=== PATIENT | male | born 1930 | race Caucasian/White ===

== ENCOUNTER 2016-12-15 15:30 | Inpatient (IN) | payer MEDICARE, BC ==
[~2016-12-15] VITALS: Ht 172.7 cm; Wt 114.0 kg
[~2016-12-15 15:30] MED LIST: ASPIRIN ADULT L81 MG PO; CIPROFLOXACIN250 MG PO; CLOPIDOGREL75 MG PO; GLIPIZIDE5 M1 PO; GLIPIZIDE5 MG PO; GLYCOLAX3350 N1 PO; KEFLEX500 M1 PO; LORTAB 5/3255 MG PO; MAG-AL PLU1 PO; MECLIZINE HCL25 MG PO; MEGESTROL AC20 MG PO; METFORMIN500 M1 PO; METFORMIN500 MG PO; PRAVASTATIN20 MG PO; PRAVASTATIN80 MG OR; TAMSULOSIN HCL0.4 MG PO; TYLENOL 500MG TAB PO; VENOFER20 MG/ML IV; [UNRECOGNIZED DRUG - OTHER] PO; [UNRECOGNIZED DRUG - OTHER] PO
[2016-12-15] MEDS ORDERED: NORTHERA100 MG PO (16:14)
[2016-12-15 16:40] LABS: HEMATOCRIT 29.6 % (39.0-50.0); HEMOGLOBIN 10.1 g/dl (14.0-18.0); IMMATURE GRANULOCYTES 0.8 % (0.0-1.0); MEAN CELL VOLUME 94.9 fL CALC (80.0-100.0); MEAN CORPUSCULAR HGB 32.4 pG CALC (26.0-32.0); MEAN CORPUSCULAR HGB CONC 34.1 g/L CALC (32.0-36.0); NEUT# 7.61 thou/uL (1.82-7.42); RED BLOOD COUNT 3.12 mill/uL (4.70-6.10); RED CELL DISTRI WIDTH 12.9 % (11.5-15.5)
[2016-12-15 16:49] LABS: ALBUMIN 3.9 g/dL (3.2-5.0); ALKALINE PHOSPHATASE 66 u/l (38-126); AMYLASE 63 u/l (30-110); ANION GAP 15 (6-22 (CALC)); BILIRUBIN, TOTAL 0.5 mg/dL (0.0-1.4); BUN 25 mg/dL (8-23); BUN/CREATININE RATIO 21 (12-20 (CALC)); CALCIUM 9.4 mg/dL (8.4-10.2); CARBON DIOXIDE 25 mmol/l (22-30); CHLORIDE 96 mmol/l (95-108); CREATININE 1.2 mg/dL (0.7-1.3); GFR 57 ML/MIN (>=60 (CALC)); GFR FOR AFR.AMER. > 60 ML/MIN (>=60 (CALC)); GLUCOSE 209 mg/dL (82-115); LIPASE 108 u/l (23-300); POTASSIUM 4.6 mmol/l (3.5-5.1); SGOT/AST 21 u/l (19-48); SGPT/ALT 31 u/l (11-66); SODIUM 131 mmol/l (137-146); TOTAL PROTEIN 6.7 g/dL (6.3-8.2)
[2016-12-15 16:52] LABS: PROTHROMBIN TIME 10.5 SECONDS (9.0-12.5)
[2016-12-15 17:00] LABS: MYOGLOBIN 65 ng/mL (0 - 121)
[2016-12-15 17:26] LABS: URINE BILIRUBIN - DIPSTICK NEGATIVE (NEGATIVE); URINE BLOOD DIPSTICK NEGATIVE (NEGATIVE); URINE CLARITY CLEAR; URINE COLOR YELLOW; URINE GLUCOSE - DIPSTICK >=1000 mg/dL (NEGATIVE); URINE KETONE NEGATIVE (NEGATIVE); URINE LEUK ESTERASE NEGATIVE (NEGATIVE); URINE NITRITE - DIPSTICK NEGATIVE (Negative); URINE PH 6.5 (4.5-8.0); URINE PROTEIN - DIPSTICK NEGATIVE (NEG-TRACE); URINE SPECIFIC GRAVITY 1.015; URINE UROBILINOGEN - DIPSTICK 0.2 E.U./dL (0.2)
[2016-12-15 19:00] VITALS: BP 156/69
[2016-12-15 21:00] VITALS: BP 138/69
[2016-12-15 21:02] VITALS: BP 141/78
[2016-12-15 21:04] VITALS: BP 62/43; BP 92/43
[2016-12-16] VITALS (12 sets, daily range): BP systolic 63–160; BP diastolic 37–74
[2016-12-16 06:07] LABS: HEMATOCRIT 28.8 % (39.0-50.0); HEMOGLOBIN 9.7 g/dl (14.0-18.0); IMMATURE GRANULOCYTES 0.9 % (0.0-1.0); MEAN CORPUSCULAR HGB CONC 33.7 g/L CALC (32.0-36.0); NEUT# 5.9 thou/uL (1.82-7.42); RED BLOOD COUNT 3.03 mill/uL (4.70-6.10)
[2016-12-16 06:26] LABS: ALBUMIN 3.4 g/dL (3.2-5.0); ALKALINE PHOSPHATASE 65 u/l (38-126); ANION GAP 13 (6-22 (CALC)); BILIRUBIN, TOTAL 0.7 mg/dL (0.0-1.4); BUN 22 mg/dL (8-23); BUN/CREATININE RATIO 20 (12-20 (CALC)); CALCIUM 9.2 mg/dL (8.4-10.2); CARBON DIOXIDE 26 mmol/l (22-30); CHLORIDE 98 mmol/l (95-108); CREATININE 1.1 mg/dL (0.7-1.3); GFR > 60 ML/MIN (>=60 (CALC)); GFR FOR AFR.AMER. > 60 ML/MIN (>=60 (CALC)); GLUCOSE 167 mg/dL (82-115); POTASSIUM 4.7 mmol/l (3.5-5.1); SGOT/AST 16 u/l (19-48); SGPT/ALT 29 u/l (11-66); SODIUM 132 mmol/l (137-146)
[2016-12-17 05:08] VITALS: BP 135/42
[2016-12-17 06:27] LABS: HEMATOCRIT 28.7 % (39.0-50.0); HEMOGLOBIN 9.6 g/dl (14.0-18.0); IMMATURE GRANULOCYTES 0.8 % (0.0-1.0); MEAN CELL VOLUME 95.3 fL CALC (80.0-100.0); MEAN CORPUSCULAR HGB 31.9 pG CALC (26.0-32.0); MEAN CORPUSCULAR HGB CONC 33.4 g/L CALC (32.0-36.0); NEUT# 4.91 thou/uL (1.82-7.42); RED BLOOD COUNT 3.01 mill/uL (4.70-6.10); RED CELL DISTRI WIDTH 13.1 % (11.5-15.5)
[2016-12-17 07:18] LABS: ANION GAP 13 (6-22 (CALC)); BUN 23 mg/dL (8-23); BUN/CREATININE RATIO 19 (12-20 (CALC)); CALCIUM 8.9 mg/dL (8.4-10.2); CARBON DIOXIDE 25 mmol/l (22-30); CHLORIDE 98 mmol/l (95-108); CREATININE 1.2 mg/dL (0.7-1.3); GFR 57 ML/MIN (>=60 (CALC)); GFR FOR AFR.AMER. > 60 ML/MIN (>=60 (CALC)); GLUCOSE 156 mg/dL (82-115); MAGNESIUM 2.1 mg/dL (1.6-2.3); POTASSIUM 4.4 mmol/l (3.5-5.1); SODIUM 131 mmol/l (137-146)
[2016-12-17 07:22] VITALS: BP 152/53
[2016-12-17 11:38] VITALS: BP 86/48
[2016-12-17 16:14] VITALS: BP 145/70
[2016-12-17 19:20] VITALS: BP 161/66
[2016-12-17 19:25] VITALS: BP 138/58
[2016-12-18] VITALS (9 sets, daily range): BP systolic 92–165; BP diastolic 52–76
[2016-12-18 06:47] LABS: ANION GAP 13 (6-22 (CALC)); BUN 19 mg/dL (8-23); BUN/CREATININE RATIO 16 (12-20 (CALC)); CARBON DIOXIDE 24 mmol/l (22-30); CHLORIDE 99 mmol/l (95-108); CREATININE 1.1 mg/dL (0.7-1.3); GFR > 60 ML/MIN (>=60 (CALC)); GFR FOR AFR.AMER. > 60 ML/MIN (>=60 (CALC)); GLUCOSE 162 mg/dL (82-115); POTASSIUM 4.5 mmol/l (3.5-5.1); SODIUM 132 mmol/l (137-146)
[2016-12-19 04:45] VITALS: BP 140/57
[2016-12-19 06:04] LABS: HEMATOCRIT 30.6 % (39.0-50.0); HEMOGLOBIN 10.5 g/dl (14.0-18.0); MEAN CELL VOLUME 94.7 fL CALC (80.0-100.0); MEAN CORPUSCULAR HGB 32.5 pG CALC (26.0-32.0); MEAN CORPUSCULAR HGB CONC 34.3 g/L CALC (32.0-36.0); NEUT# 6.42 thou/uL (1.82-7.42); RED BLOOD COUNT 3.23 mill/uL (4.70-6.10); RED CELL DISTRI WIDTH 12.8 % (11.5-15.5)
[2016-12-19 06:17] LABS: ANION GAP 15 (6-22 (CALC)); BUN 13 mg/dL (8-23); BUN/CREATININE RATIO 14 (12-20 (CALC)); CALCIUM 9.1 mg/dL (8.4-10.2); CARBON DIOXIDE 25 mmol/l (22-30); CHLORIDE 95 mmol/l (95-108); GFR > 60 ML/MIN (>=60 (CALC)); GFR FOR AFR.AMER. > 60 ML/MIN (>=60 (CALC)); GLUCOSE 162 mg/dL (82-115); POTASSIUM 4.6 mmol/l (3.5-5.1); SODIUM 130 mmol/l (137-146)
[2016-12-19 07:38] VITALS: BP 151/68
[2016-12-19 11:00] VITALS: BP 174/84
[2016-12-19] MEDS ORDERED: LEXAPRO10 MG PO (12:27)
[2016-12-19] MEDS ORDERED: NORTHERA300 MG PO (12:27)
[2016-12-19] MEDS ORDERED: TYLENOL 500MG TAB PO (12:27)
== END 2016-12-19 16:03 | DRG 57 ==
LOC: ED 15:30 → ED-I 17:20 → ED 17:42 → MS2 17:43
PROVIDERS: Emergency Medicine; Nurse Practitioner Family; ADMIT Internal Medicine; ATTEND Internal Medicine
DX: G90.3 Multi-system degeneration of the autonomic nervous system (principal); R45.851 Suicidal ideations; I11.0 Hypertensive heart disease with heart failure; I50.22 Chronic systolic (congestive) heart failure; E87.1 Hypo-osmolality and hyponatremia; E11.9 Type 2 diabetes mellitus without complications; D63.8 Anemia in other chronic diseases classified elsewhere; I25.10 Atherosclerotic heart disease of native coronary artery without angina pectoris; E78.5 Hyperlipidemia, unspecified; F32.9 Major depressive disorder, single episode, unspecified; M54.6 Pain in thoracic spine; K59.00 Constipation, unspecified; K57.30 Diverticulosis of large intestine without perforation or abscess without bleeding; Z91.81 History of falling; Z79.84 Long term (current) use of oral hypoglycemic drugs; Z85.46 Personal history of malignant neoplasm of prostate; Z85.038 Personal history of other malignant neoplasm of large intestine; Z90.49 Acquired absence of other specified parts of digestive tract; Z95.1 Presence of aortocoronary bypass graft; Z95.5 Presence of coronary angioplasty implant and graft
CPT/HCPCS: J1650